=== PATIENT | male | born 1990 | race Two or more races ===

== ENCOUNTER 2020-10-01 10:05 | Emergency (ER) | payer MEDICAID, SELFPAY ==
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
[2020-10-01 10:39] VITALS: BP 163/101; PULSE 97; RESP 18; TEMP 36.9; O2SAT 98; BMI 311.4
[2020-10-01 11:01] LABS: MANUAL DIFF FLAG NO
[2020-10-01 11:04] LABS: Basophils Absolute Auto 0.1 X10*3/uL (0.0-0.2); Basophils Percent Auto 0.4 % (0-2); Eosinophils Percent Auto 0.3 % (0-4); Hematocrit 44.1 % (42-52); Hemoglobin 14.7 g/dl (14.0-18.0); Imm Gran Abs Auto 0.04 X10*3/uL (0.00-0.03); Imm Gran Pct Auto 0.3 % (0.0-0.4); Lymphocytes Percent Auto 15.7 % (20-40); Mean Corpuscular HGB Conc 33.3 g/dl (31.0-36.0); Mean Corpuscular Hemoglobin 31.6 pg (27.0-33.0); Mean Corpuscular Volume 94.8 fL (80-98); Mean Platelet Volume 9.3 fL (9.4-12.4); Monocytes Absolute Auto 1.3 X10*3/uL (0.1-1.2); Monocytes Percent Auto 10.4 % (2-11); Neutrophils Absolute Auto 9.2 X10*3/uL (2.0-8.3); Neutrophils Percent Auto 72.9 % (45-73); Platelet Count 319 X10*3/uL (160-400); Red Blood Count 4.65 X10*6/uL (4.60-5.80); Red Cell Distribution Width 12.9 % (11.0-16.0); White Blood Count 12.6 X10*3/uL (4.8-10.8)
[2020-10-01 11:20] LABS: Ethanol < 10 mg/dL
[2020-10-01 11:25] LABS: Alanine Aminotransferase 20 U/L (0-40); Albumin Level 4.8 g/dL (3.5-5.0); Alkaline Phosphatase 95 U/L (39-117); Anion Gap 16 (12-20); Aspartate Amino Transferase 27 U/L (5-37); Bilirubin Direct 0.4 mg/dL (0.0-0.5); Bilirubin Total 1.2 mg/dL (0.0-1.0); Blood Urea Nitrogen 12 mg/dL (9-16); Calcium 9.9 mg/dL (8.4-10.2); Carbon Dioxide 24 mmol/L (22-29); Chloride 104 mmol/L (96-108); Creatinine Clr Calc Pharmacy 569.2; Estimated Glomerular Filt Rate > 60; Glucose Random 108 mg/dL (60-115); Magnesium 2.2 mg/dL (1.6-2.6); Potassium 4.7 mmol/L (3.3-5.1); Sodium 139 mmol/L (135-145); Total Protein 8.6 g/dL (6.5-8.0)
[2020-10-01 11:38] LABS: Influenza A PCR NEGATIVE (Negative); Influenza B PCR NEGATIVE (Negative); Resp Syncy Virus RNA Qual PCR NEGATIVE (Negative); SARS COV2 PCR INHOUSE NEGATIVE (Negative)
[2020-10-01 12:17] LABS: Glucose Urine UA NEG (NEG); Leukocyte Esterase Urine NEG (NEG); Nitrite Urine NEG (NEG); Specific Gravity - Urine >= 1.030 (1.005-1.025); Urine Blood NEG (NEG); Urine Ketones >=80 MG/DL (NEG); Urine Protein TRACE MG/DL (NEG-TRACE)
[2020-10-01 12:19] LABS: Appearance Urine CLEAR; Color Urine YELLOW
[2020-10-01 12:34] VITALS: RESP 18
--- NOTE | 2020-10-01 12:38 | PC.NURSE ---
referral sent to n at this time- email confirmation obtained
[2020-10-01 13:18] LABS: Amphetamine Screen Urine POSITIVE (Not Detect); Barbiturates, Urine Not Detected (Not Detect); Benzodiazepines Screen Urine Not Detected (Not Detect); Cannabinoid Screen Urine POSITIVE (Not Detect); Cocaine Screen Urine Not Detected (Not Detect); Fentanyl, urine Not Detected (Not Detect); Opiate Screen Urine Not Detected (Not Detect); Phencyclidine Screen Urine Not Detected (Not Detect)
[2020-10-01 16:15] VITALS: BP 150/94; PULSE 90; RESP 20; TEMP 36.9; O2SAT 97
== END 2020-10-01 18:58 | disposition home or self-care (01) ==
PROVIDERS: Physician Assistant; Emergency Provider Emergency Medicine Emergency Medical Services; PCP Student in an Organized Health Care Education/Training Program
DX: F22 Delusional disorders (principal); F41.9 Anxiety disorder, unspecified; F10.10 Alcohol abuse, uncomplicated; Y90.0 Blood alcohol level of less than 20 mg/100 ml; R00.0 Tachycardia, unspecified; F14.10 Cocaine abuse, uncomplicated; Z20.822 Contact with and (suspected) exposure to COVID-19
CPT/HCPCS: 0241U; 36415; 80048; 80076; 80307; 81003; 82077; 83735; 85025; 99285

== ENCOUNTER 2023-04-26 01:51 | Emergency (ER) | payer OTHER, SELFPAY ==
--- NOTE | 2023-04-26 | ECG_ITS ---
Test Reason : CHEST PRESSURE Blood Pressure : / mmHG Vent. Rate : 109 BPM Atrial Rate : 109 BPM P-R Int : 144 ms QRS Dur : 086 ms QT Int : 356 ms P-R-T Axes : 054 063 019 degrees QTc Int : 479 ms Sinus tachycardia Otherwise normal ECG When compared with ECG of 04-JUL-2016 14:30, No significant change was found Referred By: Generic ED Physician Electronically Signed By:Gordy Goldberg
--- NOTE | ~2023-04-26 | XR_ITS ---
EXAMINATION: XR CHEST CLINICAL INFORMATION: Chest pain COMPARISON: 04/25/2017 TECHNIQUE: Frontal view of the chest was obtained. FINDINGS: Lungs are slightly hypoinflated and appear clear without focal consolidation. No evidence of pneumothorax, pleural effusion, or pulmonary edema. Cardiac silhouette appears mildly prominent and may be accentuated by low lung volumes. No acute osseous findings are seen. XR/XR chest 1V IMPRESSION: Low lung volumes without acute findings.
[2023-04-26 01:57] VITALS: BP 159/120; BP 170/105; PULSE 118; PULSE 120; RESP 20; TEMP 36.9; O2SAT 95; O2SAT 99; BMI 36.1
--- NOTE | 2023-04-26 02:10 | PC.NURSE ---
pt biba from home, a&ox4, respirations even and unlabored. pt reporting onset of chest pressure after consuming 4 beers. pt reports pressure began around 1am and has not subsided. pt denies chest pain, denies n/v/d. pt refused IV and asprin in ambulance, reports taking tylenol at home. pt refusing IV at this time, aware. EKG completed and labs obtained by tech. pt sinus tachy on tele 110-113.
[2023-04-26 02:20] LABS: MANUAL DIFF FLAG NO
[2023-04-26 02:21] LABS: Basophils Percent Auto 0.4 % (0-2); Eosinophils Percent Auto 0.2 % (0-4); Hematocrit 44.3 % (42.0-52.0); Imm Gran Abs Auto 0.03 X10*3/uL (0.00-0.03); Imm Gran Pct Auto 0.3 % (0.0-0.4); Lymphocytes Absolute Auto 2.7 X10*3/uL (1.2-4.9); Lymphocytes Percent Auto 27.9 % (20-40); Mean Corpuscular HGB Conc 33.9 g/dl (31.0-36.0); Mean Corpuscular Hemoglobin 30.4 pg (27.0-33.0); Mean Corpuscular Volume 89.9 fL (80.0-98.0); Mean Platelet Volume 8.9 fL (9.4-12.4); Monocytes Absolute Auto 0.8 X10*3/uL (0.1-1.2); Monocytes Percent Auto 8.3 % (2-11); Neutrophils Percent Auto 62.9 % (45-73); Platelet Count 367 X10*3/uL (160-400); Red Blood Count 4.93 X10*6/uL (4.60-5.80); Red Cell Distribution Width 12.5 % (11.0-16.0); White Blood Count 9.5 X10*3/uL (4.8-10.8)
[2023-04-26 02:34] LABS: Alanine Aminotransferase 41 U/L (0-40); Albumin Level 4.6 g/dL (3.5-5.0); Alkaline Phosphatase 102 U/L (39-117); Anion Gap 18 (12-20); Aspartate Amino Transferase 46 U/L (5-37); Bilirubin Total 0.2 mg/dL (0.0-1.0); Blood Urea Nitrogen 8 mg/dL (9-16); Calcium 9.5 mg/dL (8.4-10.2); Carbon Dioxide 22 mmol/L (22-29); Chloride 104 mmol/L (96-108); Creatinine Clr Calc Pharmacy 111.8; Estimated Glomerular Filt Rate > 60; Glucose Random 127 mg/dL (60-115); Potassium 3.2 mmol/L (3.3-5.1); Sodium 141 mmol/L (135-145); Total Protein 8.3 g/dL (6.5-8.0)
[2023-04-26 02:42] LABS: Troponin-I High Sensitivity 3.6 ng/L (<3.5-35.0)
--- NOTE | 2023-04-26 03:01 | ED_ITS ---
HPI - Chest Pain General Chief Complaint: Chest Pain Stated Complaint: chest pressure Time Seen by Provider: 04/26/23 02:26 Source: patient Mode of arrival: ambulatory Limitations: no limitations History of Present Illness HPI narrative: Patient had 4 beers at 23:00 went to sleep woke up at 03:00 with mid chest pain with burning sensation radiating to the epigastric area also complaining of sore throat for last 2 days and having dry cough no shortness of breath patient was feeling hot and sweaty on arrival temperature was 98.4 degrees Related Data Previous Rx's Medication Instructions Recorded amoxicillin 875 mg-potassium 1 tab PO BID #20 tabs 04/26/23 clavulanate 125 mg tablet pantoprazole 40 mg tablet,delayed 40 mg PO DAILY #30 tabs 04/26/23 release (Protonix) sucralfate 1 gram tablet 1 g PO BID #60 tabs 04/26/23 Allergies Allergy/AdvReac Type Severity Reaction Status Date / Time apple [APPLES] Allergy Unknown RN Verified 04/26/23 01:56 APPLE SKINS Allergy Mild ITCHY Uncoded 04/26/23 01:56 THROAT Review of Systems 2 Review of Systems: Yes all other systems are reviewed and are negative [facility] Social History Social History Alcohol intake: current Smoked in Last 30 Days: Yes Use of substances other than those prescribed or required for medical reasons: No Advance Directives: No Advance Directives Information Provided: No Physical Exam 2 Vital Signs: Vital Signs: Last Vital Signs Temp 98.4 F 04/26/23 01:57 Pulse 106 H 04/26/23 03:29 Resp 24 H 04/26/23 03:29 BP 153/101 H 04/26/23 03:29 Pulse Ox 96 04/26/23 03:29 O2 Del Method Room Air 04/26/23 03:29 BMI result Body Mass Index 36.1 Appearance: Alert. Oriented X3. No acute distress. ENT: erythematous posterior pharynx no exudate. Oral Mucosa moist Neck: Normal inspection. Neck supple. CVS: Normal heart rate and rhythm. Pulses normal. Respiratory: No respiratory distress. Equal air entry bilateral, no wheezing/rales/rhonchi Abdomen: Soft and nontender. Bowel sounds are present, no mass palpable, no CVA tenderness Skin: Skin warm and dry. Normal skin color. Normal skin turgor. Extremities: No lower extremity edema. No calf tenderness Neuro: Oriented X 3. No motor deficit. No sensory deficit. Medications Administered Discontinued Medications Generic Name Dose Route Start Last Admin Trade Name Allenq PRN Reason Stop Dose Admin Al Hydroxide/Mg Hydroxide 30 ml 04/26/23 03:35 04/26/23 03:42 Magnesium Hydrox/Alum Hydrox 30 Ml Oral.Susp PO 04/26/23 03:36 30 ml ONCE ONE Administration Amoxicillin/Clavulanate Potassium 875 mg 04/26/23 03:34 04/26/23 03:41 Amoxicillin/Potassium Clav 875 Mg Tablet PO 04/26/23 03:35 875 mg ONCE ONE Administration Ibuprofen 600 mg 04/26/23 03:34 04/26/23 03:41 Ibuprofen 600 Mg Tablet PO 04/26/23 03:35 600 mg ONCE ONE Administration Ketorolac Tromethamine 60 mg 04/26/23 05:32 04/26/23 05:46 Ketorolac Tromethamine 60 Mg/2 Ml Vial IM 04/26/23 05:33 60 mg ONCE ONE Administration Lidocaine HCl 15 ml 04/26/23 03:35 04/26/23 03:42 Lidocaine Hcl Viscous 2 % 15 Ml Solution MUCOUS MEM 04/26/23 03:36 15 ml ONCE ONE Administration Medical Decision Making Medical Decision Making [facility] Narrative: Patient with atypical chest pain with normal EKG D-dimer negative for PE 2 sets of cardiac enzymes also negative noticed to have strep throat likely the cause for sore throat sharp patient home on antibiotics pain is likely from gastritis patient felt better after Maalox Differential Diagnosis Differential Diagnoses: The differential diagnosis associated with the presentation includes Acute bronchitis/gastritis/strep/ACS/PE Lab Data [facility] Lab Attestation statement: I reviewed the patient's lab results. 04/26/23 02:16 04/26/23 02:16 Labs: Lab Results 04/26/23 04/26/23 04/26/23 Range/Units 02:16 03:19 03:52 WBC 9.5 (4.8-10.8) X10*3/uL RBC 4.93 (4.60-5.80) X10*6/uL Hgb 15.0 (14.0-18.0) g/dl Hct 44.3 (42.0-52.0) % MCV 89.9 (80.0-98.0) fL MCH 30.4 (27.0-33.0) pg MCHC 33.9 (31.0-36.0) g/dl RDW 12.5 (11.0-16.0) % Plt Count 367 (160-400) X10*3/uL MPV 8.9 L (9.4-12.4) fL Immature Gran % (Auto) 0.3 (0.0-0.4) % Neut % (Auto) 62.9 (45-73) % Lymph % (Auto) 27.9 (20-40) % Walton % (Auto) 8.3 (2-11) % Eos % (Auto) 0.2 (0-4) % Baso % (Auto) 0.4 (0-2) % Lymph # (Auto) 2.7 (1.2-4.9) X10*3/uL Walton # (Auto) 0.8 (0.1-1.2) X10*3/uL Eos # (Auto) 0.0 (0.0-0.4) X10*3/uL Baso # (Auto) 0.0 (0.0-0.2) X10*3/uL Abs Immat Gran (auto) 0.03 (0.00-0.03) X10*3/uL Absolute Neuts (auto) 6.0 (2.0-8.3) x10*3/uL Absolute Nucleated RBC 0.000 (0.0-0.012) X10*3/uL Nucleated RBC % (auto) 0.0 (0.0-0.2) /100WBC D-Dimer High Sensitivty < 150 NG/ML Sodium 141 (135-145) mmol/L Potassium 3.2 L (3.3-5.1) mmol/L Chloride 104 (96-108) mmol/L Carbon Dioxide 22 (22-29) mmol/L Anion Gap 18 (12-20) BUN 8 L (9-16) mg/dL Creatinine 0.97 (0.5-1.4) mg/dL Estim Creat Clear Calc 111.8 Estimated GFR > 60 Random Glucose 127 H (60-115) mg/dL Calcium 9.5 (8.4-10.2) mg/dL Total Bilirubin 0.2 (0.0-1.0) mg/dL AST 46 H (5-37) U/L ALT 41 H (0-40) U/L Alkaline Phosphatase 102 (39-117) U/L Troponin I High Sens 3.6 < 2.7 (<3.5-35.0) ng/L Total Protein 8.3 H (6.5-8.0) g/dL Albumin 4.6 (3.5-5.0) g/dL COVID-19 (ISSAC) Negative (Negative) COVID-19 Clin Com See Note S. pyogenes GrpA NORBERTO Positive A (Negative) Independent Interpretation I performed an independent interpretation of an: EKG Interpretation: Sinus tachycardia heart rate 109 beats per minute normal interval normal axis no acute ST T wave change no ischemia Discharge Plan Discharge Clinical Impression: Atypical chest pain, Strep throat Patient Disposition: Home, Self-Care Instructions: Strep Throat (ED), Noncardiac Chest Pain (ED) Additional Instructions: Drink plenty of fluid Avoid fried food Take medicine for gastritis that likely the cause of the pain Take antibiotic as prescribed for strep throat Follow with PCP pain continues for further workup Prescriptions: New amoxicillin-pot clavulanate 875-125 mg tablet 1 tab PO BID Qty: 20 0RF pantoprazole [Protonix] 40 mg tablet,delayed release (DR/EC) 40 mg PO DAILY Qty: 30 0RF sucralfate 1 gram tablet 1 g PO BID Qty: 60 0RF Interventions: ED Discharge Assessment Last Done: 04/26/23 06:29 Discharge Date/Time: 04/26/23 06:29
[2023-04-26 03:28] LABS: IDNOW Serial# 08D9AD1C; Strep A Nucleic Acid Positive (Negative)
[2023-04-26 03:29] VITALS: BP 153/101; PULSE 106; RESP 24; O2SAT 96
[2023-04-26 03:40] LABS: COVID-19 Test Negative (Negative); IDNOW Serial# 152EDE1D
[2023-04-26] MEDS: Ibuprofen 600 MG TABLET PO (03:41)
[2023-04-26] MEDS: Amoxicillin/Potassium Clav 875 MG TABLET PO (03:41)
[2023-04-26] MEDS: Magnesium Hydrox/Alum Hydrox 30 ML ORAL.SUSP PO (03:42)
[2023-04-26] MEDS: Lidocaine HCl Viscous 2 % 15 ML SOLUTION MUCOUS MEM (03:42)
--- NOTE | 2023-04-26 03:43 | PC.NURSE ---
pt medicated per mar, pt tolerated well with water.
[2023-04-26 04:07] LABS: D Dimer High Sensitivity < 150 NG/ML
[2023-04-26 04:18] LABS: Troponin-I High Sensitivity < 2.7 ng/L (<3.5-35.0)
[2023-04-26] MEDS: Ketorolac Tromethamine 60 MG/2 ML VIAL IM (05:46)
== END 2023-04-26 06:29 | disposition home or self-care (01) ==
PROVIDERS: Emergency Provider Internal Medicine
DX: R07.89 Other chest pain (principal); J02.0 Streptococcal pharyngitis; Z11.52 Encounter for screening for COVID-19
CPT/HCPCS: 36415; 71045; 80053; 84484; 85025; 85379; 87635; 87651; 93005; 96372; 99284; 99285; J1885

== ENCOUNTER → 2023-04-26 02:05 | Outpatient (BNV) | payer OTHER, SELFPAY | PROVIDERS: Emergency Provider Internal Medicine; Visit Provider Internal Medicine Cardiovascular Disease | DX: R07.89 Other chest pain (principal) | CPT/HCPCS: 93010 ==

== ENCOUNTER 2023-06-23 21:02 | Emergency (ER) | payer OTHER, SELFPAY ==
--- NOTE | 2023-06-23 | ECG_ITS ---
Test Reason : TACHYCARDIA Blood Pressure : / mmHG Vent. Rate : 129 BPM Atrial Rate : 129 BPM P-R Int : 142 ms QRS Dur : 080 ms QT Int : 324 ms P-R-T Axes : 058 055 021 degrees QTc Int : 474 ms Sinus tachycardia Possible Left atrial enlargement Borderline ECG When compared with ECG of 26-APR-2023 02:05, No significant change was found Referred By: Generic ED Physician Electronically Signed By:SAHIL LANDIN
[2023-06-23 21:05] VITALS: BP 153/101; PULSE 128; RESP 18; TEMP 36.8; O2SAT 98; BMI 34.3
[2023-06-23] MEDS: LORazepam 2 MG/ML VIAL IM (21:44)
[2023-06-23] MEDS: diphenhydrAMINE HCL 50 MG/ML VIAL IM (21:44)
[2023-06-23] MEDS: Haloperidol Lactate 5 MG/ML VIAL IM (21:44)
[2023-06-23 22:44] VITALS: PULSE 89; RESP 17; O2SAT 94
--- NOTE | 2023-06-23 23:06 | PC.NURSE ---
Patient at the time arrival in ED POD was exhibiting erratic behavior due to under substance influence, loud disruptive, unable to follow direction, and combative. Provider notified/ordered Ativan 2 mg IM, Haldol 5 mg IM, and Benadryl 50 mg IM/administered as ordered at 2144, patient is is currently in bed appears sleeping, HR at 2244 was 89, will continue to monitor
--- NOTE | 2023-06-24 00:58 | ED.PSYCH ---
HPI - Psych General Chief Complaint: Psychiatric Symptoms Stated Complaint: crisis Time Seen by Provider: 06/23/23 21:22 Source: patient, EMS and RN notes reviewed Mode of arrival: ambulatory Limitations: altered mental status History of Present Illness HPI Narrative: 33-year-old male with history of PTSD, depression/anxiety, intermittent cocaine use, alcohol abuse who presents to the emergency department for evaluation of suicidal ideation. The patient appeared to be very paranoid, tremulous and diaphoretic and was not answering questions. Following was obtained from the nursing note. The patient presents for cocaine use and SIRobert Maury stated that the patient took cocaine less than 1 hour prior to evaluation and patient is currently and patient wanted to be seen for help with thoughts of self-harm. The patient was seen in the emergency department on 10/01/2020 for paranoid ideation and delusions it was felt the patient's symptoms were secondary to his cocaine and drug use and he did not require hospitalization at that time.. Related Data Home Medications ?Medication ?Instructions ?Recorded ?Confirmed No Known Home Meds 06/23/23 06/23/23 Allergies Allergy/AdvReac Type Severity Reaction Status Date / Time apple [APPLES] Allergy Unknown RN Verified 06/23/23 21:07 APPLE SKINS Allergy Mild ITCHY Uncoded 04/26/23 01:56 THROAT Review of Systems Review of Systems: Yes all other systems are reviewed and are negative PMFSH Social History Social History Alcohol intake: current Advance Directives: No Advance Directives Information Provided: No Do you have a plan to hurt others: No Plan Physical Exam Vital Signs: Vital Signs: Last Vital Signs Temp 98.2 F 06/23/23 21:05 Pulse 89 06/23/23 22:44 Resp 17 06/23/23 22:44 BP 153/101 H 06/23/23 21:05 Pulse Ox 94 06/23/23 22:44 O2 Del Method Room Air 06/23/23 22:44 BMI result Body Mass Index 34.3 Vital signs revealed an elevated pulse of 128, elevated blood pressure 153/101. Exam: General: Patient appears to be paranoid, refuses to cooperate, diaphoretic and tremulous Head: Normocephalic, atraumatic EENT: PERRL, Lids normal, sclera normal, conjunctiva normal, nose normal , ears normal, throat without erythema or exudates Neck: Supple, no adenopathy Lung: breath sounds symmetric, no wheezing, rales or rhonchi Chest: symmetric movement, nontender Heart: Tachycardia with a regular rhythm normal S1, S2 no murmurs or rubs Abdomen: soft, non-tender, nondistended, normal bowel sounds Back: no vertebral tenderness, no CVAT Extremities: no deformities, moves all extremities symmetrically Neuro: Awake, alert, oriented to person, pressured speech, cranial nerves intact, moves all extremities symmetrically Medications Administered Discontinued Medications Generic Name Dose Route Start Last Admin Trade Name Freq PRN Reason Stop Dose Admin Diphenhydramine HCl 50 mg 06/23/23 21:40 06/23/23 21:44 Diphenhydramine Hcl 50 Mg/Ml Vial IM 06/23/23 21:41 50 mg ONCE ONE Administration Diphenhydramine HCl 50 mg 06/23/23 21:42 06/23/23 21:49 Diphenhydramine Hcl 50 Mg/Ml Vial IM 06/23/23 21:43 Not Given ONCE ONE Haloperidol Lactate 5 mg 06/23/23 21:40 06/23/23 21:44 Haloperidol Lactate 5 Mg/Ml Vial IM 06/23/23 21:41 5 mg STAT STA Administration Haloperidol Lactate 10 mg 06/23/23 21:42 06/23/23 21:49 Haloperidol Lactate 5 Mg/Ml Vial IM 06/23/23 21:43 Not Given ONCE ONE Lorazepam 2 mg 06/23/23 21:22 06/23/23 21:48 Lorazepam 1 Mg Tablet PO 06/23/23 21:23 Not Given ONCE STA Lorazepam 2 mg 06/23/23 21:40 06/23/23 21:44 Lorazepam 2 Mg/Ml Vial IM 06/23/23 21:41 2 mg STAT STA Administration Lorazepam 2 mg 06/23/23 21:42 06/23/23 21:49 Lorazepam 2 Mg/Ml Vial IM 06/23/23 21:43 Not Given STAT STA Medical Decision Making Medical Decision Making MDM Narrative: 33-year-old male with history of PTSD, depression/anxiety, intermittent cocaine use, alcohol abuse who presents to the emergency department for evaluation of suicidal ideation. On exam the patient was tachycardic, diaphoretic, he had pressured speech with paranoid thoughts, he was not cooperating. Patient had a similar presentation in 2020 with paranoid ideation and delusions, that time it was felt to be secondary to his drug use. Vital signs did reveal tachycardia and an elevated blood pressure. His neurologic exam was nonfocal. Differential diagnosis: ?Includes but is not limited to suicidal ideation, paranoid ideation, cocaine use, polysubstance use, alcohol use, electrolyte abnormalities, anemia Following evaluation was ordered: CBC, CMP, CK, ethanol level, drug screen urine, salicylate and acetaminophen levels Course: 21:40 The patient appeared to be paranoid and was uncooperative, I was concerned that he may harm himself or Staph therefore he was treated with Haldol 5 mg IM, Benadryl 50 mg IM and lorazepam 2 mg IM with good effect. 02:33 Start physician observation The patient is resting comfortably. Patient's laboratory evaluation is pending blood draw. At the end of my shift, the patient's care was turned over to my colleague, Dr. Sia Griffiths. Patient will remain in the emergency department [facility] until disposition can be determined or until patient's symptoms improve over time. Admission/Observation Consideration of admission/observation: Escalation of care including admission/observation considered Independent Interpretation I performed an independent interpretation of an: EKG Interpretation: My interpretation patient's 12 EKG is as follows: Sinus tachycardia with a rate of 129, normal AK interval, QRS duration and QTC T interval, no ST segment elevation, no ST segment depression, no significant T-wave abnormalities, no PACs, no PVCs Discharge Plan Discharge Clinical Impression: Paranoid ideation, Suicidal ideation, Cocaine use disorder Patient Disposition: Still a Patient Prescriptions: No Action No Known Home Meds Print Language: Estonian
[2023-06-24 05:54] LABS: MANUAL DIFF FLAG NO
[2023-06-24 05:56] VITALS: BP 97/59; PULSE 60; RESP 16; TEMP 36.8; O2SAT 98
[2023-06-24 06:12] LABS: Basophils Absolute Auto 0.1 X10*3/uL (0.0-0.2); Basophils Percent Auto 0.7 % (0-2); Eosinophils Absolute Auto 0.2 X10*3/uL (0.0-0.4); Eosinophils Percent Auto 1.8 % (0-4); Hematocrit 44.3 % (42.0-52.0); Hemoglobin 14.7 g/dl (14.0-18.0); Imm Gran Abs Auto 0.03 X10*3/uL (0.00-0.03); Imm Gran Pct Auto 0.3 % (0.0-0.4); Lymphocytes Absolute Auto 3.9 X10*3/uL (1.2-4.9); Lymphocytes Percent Auto 37.2 % (20-40); Mean Corpuscular HGB Conc 33.2 g/dl (31.0-36.0); Mean Corpuscular Hemoglobin 30.3 pg (27.0-33.0); Mean Corpuscular Volume 91.3 fL (80.0-98.0); Monocytes Percent Auto 9.6 % (2-11); Neutrophils Absolute Auto 5.3 x10*3/uL (2.0-8.3); Neutrophils Percent Auto 50.4 % (45-73); Platelet Count 314 X10*3/uL (160-400); Red Blood Count 4.85 X10*6/uL (4.60-5.80); Red Cell Distribution Width 12.6 % (11.0-16.0); White Blood Count 10.6 X10*3/uL (4.8-10.8)
[2023-06-24 06:19] LABS: Acetaminophen LAB < 3 mcg/mL (<30); Alanine Aminotransferase 21 U/L (0-40); Albumin Level 4.2 g/dL (3.5-5.0); Alkaline Phosphatase 91 U/L (39-117); Anion Gap 17 (12-20); Aspartate Amino Transferase 35 U/L (5-37); Blood Urea Nitrogen 10 mg/dL (9-16); Calcium 9.7 mg/dL (8.4-10.2); Carbon Dioxide 21 mmol/L (22-29); Chloride 105 mmol/L (96-108); Creatinine Clr Calc Pharmacy 113.6; Estimated Glomerular Filt Rate > 60; Ethanol < 10 mg/dL; Glucose Random 79 mg/dL (60-115); Potassium 3.8 mmol/L (3.3-5.1); Salicylate < 5.0 mg/dL (15-30); Sodium 139 mmol/L (135-145); Total Protein 7.7 g/dL (6.5-8.0)
--- NOTE | 2023-06-24 06:22 | PC.NURSE ---
Patient slept through the night, no distress observed/reported, patient was S/P chemical restraint, patient responded well to medication, compliant with lab draw in the morning, unable to provide urine sample yet, care consult ordered/pending evaluation, med rec completed/currently not on any medication, VSS, will continue to monitor
--- NOTE | 2023-06-24 08:51 | PC.NURSE ---
Assumed care of patient at 0645, patient appears to be sleeping, respirations even and unlabored, no apparent distress noted at this time. Patient has yet to give urine sample, after sample is given, care team will see patient
[2023-06-24 11:19] LABS: Appearance Urine Cloudy; Color Urine Dark Yellow; Glucose Urine UA Negative (Negative); Leukocyte Esterase Urine Small (1+) (Negative); Nitrite Urine Negative (Negative); Specific Gravity - Urine >= 1.030 (1.005-1.025); UMIC TRIGGER UA YES; Urine Blood Negative (Negative); Urine Ketones 40 mg/dL (Negative); Urine Protein 30 (1+) mg/dL (Neg-Trace)
[2023-06-24 11:35] LABS: Bacteria Urine None Seen (None Seen); RBC Urine 0-2 /HPF (0-2); Squamous Epithelial Cell Urine 0-2 /HPF (0-2); WBC Urine 0-5 /HPF (0-5)
[2023-06-24 12:18] LABS: Amphetamine Screen Urine Not Detected (Not Detect); Barbiturates, Urine Not Detected (Not Detect); Benzodiazepines Screen Urine Not Detected (Not Detect); Buprenorphine Scr Not Detected (Not Detect); Cannabinoid Screen Urine POSITIVE (Not Detect); Cocaine Screen Urine POSITIVE (Not Detect); Fentanyl, urine Not Detected (Not Detect); Methadone Screen, Urine Not Detected (Not Detect); Opiate Screen Urine Not Detected (Not Detect); Oxycodone Screen Urine Not Detected (Not Detect); Phencyclidine Screen Urine Not Detected (Not Detect)
--- NOTE | 2023-06-24 14:49 | MHC.CARE ---
Patient evaluated by the CARE Team, he does not require an inpatient psychiatric admission at this time. ED provider, Dr. Olmstead updated and in agreement to discharge patient. Written assessment to follow.
[2023-06-24 14:56] VITALS: BP 132/84; PULSE 87; RESP 16; TEMP 36.6; O2SAT 98
== END 2023-06-24 15:00 | disposition home or self-care (01) ==
PROVIDERS: Emergency Provider Emergency Medicine Emergency Medical Services
DX: R45.851 Suicidal ideations (principal); F22 Delusional disorders; F14.90 Cocaine use, unspecified, uncomplicated
CPT/HCPCS: 36415; 80053; 80143; 80179; 80307; 81001; 82550; 85025; 93005; 96372; 99285; J1200; J1630; J2060; S9485

== ENCOUNTER → 2023-06-23 21:11 | Outpatient (BNV) | payer OTHER, SELFPAY | PROVIDERS: Emergency Provider Emergency Medicine Emergency Medical Services; Visit Provider Internal Medicine | DX: R00.0 Tachycardia, unspecified (principal); R94.31 Abnormal electrocardiogram [ECG] [EKG] | CPT/HCPCS: 93010 ==

== ENCOUNTER 2023-06-24 22:23 | Emergency (ER) | payer OTHER, SELFPAY ==
--- NOTE | 2023-06-24 | ECG_ITS ---
Test Reason : DEHYDRATION Blood Pressure : / mmHG Vent. Rate : 120 BPM Atrial Rate : 120 BPM P-R Int : 152 ms QRS Dur : 086 ms QT Int : 342 ms P-R-T Axes : 042 052 019 degrees QTc Int : 483 ms Sinus tachycardia Otherwise normal ECG When compared with ECG of 23-JUN-2023 21:11, No significant change was found Referred By: Generic ED Physician Electronically Signed By:SAHIL LANDIN
[2023-06-24 22:58] VITALS: BP 144/98; PULSE 127; RESP 18; TEMP 36.8; O2SAT 96; BMI 37.8
[2023-06-24 23:43] LABS: MANUAL DIFF FLAG NO
[2023-06-24 23:44] LABS: Basophils Absolute Auto 0.1 X10*3/uL (0.0-0.2); Basophils Percent Auto 0.5 % (0-2); Eosinophils Percent Auto 0.1 % (0-4); Hematocrit 45.7 % (42.0-52.0); Hemoglobin 15.4 g/dl (14.0-18.0); Imm Gran Abs Auto 0.03 X10*3/uL (0.00-0.03); Imm Gran Pct Auto 0.3 % (0.0-0.4); Lymphocytes Absolute Auto 1.9 X10*3/uL (1.2-4.9); Lymphocytes Percent Auto 16.3 % (20-40); Mean Corpuscular HGB Conc 33.7 g/dl (31.0-36.0); Mean Corpuscular Hemoglobin 30.4 pg (27.0-33.0); Mean Corpuscular Volume 90.3 fL (80.0-98.0); Mean Platelet Volume 9.7 fL (9.4-12.4); Monocytes Absolute Auto 0.8 X10*3/uL (0.1-1.2); Monocytes Percent Auto 6.5 % (2-11); Neutrophils Absolute Auto 8.8 x10*3/uL (2.0-8.3); Neutrophils Percent Auto 76.3 % (45-73); Platelet Count 405 X10*3/uL (160-400); Red Blood Count 5.06 X10*6/uL (4.60-5.80); Red Cell Distribution Width 12.4 % (11.0-16.0); White Blood Count 11.6 X10*3/uL (4.8-10.8)
--- NOTE | 2023-06-24 23:58 | PC.NURSE ---
pt seen leaving by registration
[2023-06-24 23:59] LABS: Alanine Aminotransferase 25 U/L (0-40); Albumin Level 4.8 g/dL (3.5-5.0); Alkaline Phosphatase 101 U/L (39-117); Anion Gap 18 (12-20); Aspartate Amino Transferase 43 U/L (5-37); Bilirubin Total 0.4 mg/dL (0.0-1.0); Blood Urea Nitrogen 10 mg/dL (9-16); Calcium 9.7 mg/dL (8.4-10.2); Carbon Dioxide 22 mmol/L (22-29); Chloride 103 mmol/L (96-108); Creatinine Clr Calc Pharmacy 87.4; Estimated Glomerular Filt Rate > 60; Glucose Random 137 mg/dL (60-115); Potassium 3.7 mmol/L (3.3-5.1); Sodium 139 mmol/L (135-145); Total Protein 8.6 g/dL (6.5-8.0)
== END 2023-06-24 23:58 | disposition left against medical advice (07) ==
PROVIDERS: Emergency Provider Emergency Medicine
DX: E86.0 Dehydration (principal); F10.920 Alcohol use, unspecified with intoxication, uncomplicated; Y90.9 Presence of alcohol in blood, level not specified; Z53.21 Procedure and treatment not carried out due to patient leaving prior to being seen by health care provider
CPT/HCPCS: 36415; 80053; 85025; 93005; 99283

== ENCOUNTER → 2023-06-24 23:04 | Outpatient (BNV) | payer OTHER, SELFPAY | PROVIDERS: Emergency Provider Emergency Medicine; Visit Provider Internal Medicine | DX: E86.0 Dehydration (principal) | CPT/HCPCS: 93010 ==